=== PATIENT | female | born 1995 | race African-American/Black ===

== ENCOUNTER 2018-02-23 22:28 | Emergency (ER) | payer MEDICAID ==
[~2018-02-23] VITALS: Ht 165.1 cm; Wt 109.0 kg
[~2018-02-23 22:28] MED LIST: SEE MED REC
[2018-02-23 23:53] LABS: BASOPHILS % 0.5 % (0.0-2.0); EOSINOPHILS % 1.4 % (0.0-5.0); HEMATOCRIT. 36.9 % (36.0-48.0); HEMOGLOBIN. 12.6 g/dL (12.0-16.0); LYMPHOCYTES % 22.5 % (20.0-50.0); MONOCYTES % 5.7 % (2.0-8.0); NEUTROPHILS % 69.9 % (40.0-76.0); PLATELET 274 x1000/uL (130-400); RED BLOOD CELL COUNT 4.06 mill/uL (4.2-5.4); RED CELL DISTRIBUTION WIDTH 13.1 % (11.6-14.6)
[2018-02-23 23:56] LABS: CLARITY URINE CLEAR (CLEAR); COLOR URINE YELLOW (YELLOW); KETONES URINE TRACE (NEGATIVE); LEUKOCYTE ESTERASE URINE TRACE (NEGATIVE); NITRITE URINE NEGATIVE (NEGATIVE); OCCULT BLOOD URINE NEGATIVE (NEGATIVE); PH URINE 6.5 (4.5-8.0); PROTEIN URINE NEGATIVE (NEGATIVE)
[2018-02-23 23:58] LABS: CHLORIDE 105 mEq/L (98-107)
[2018-02-23 23:59] LABS: PROTHROMBIN TIME 10.8 sec (9.4-11.6)
[2018-02-24] MEDS ORDERED: AZITHROMYCIN 500 MG TABLET PO ONE (01:15)
[2018-02-24] MEDS ORDERED: LIDOCAINE HCL 1% 20ML VIAL (Pyxis) INJ INFIL ONE (01:15)
[2018-02-24] MEDS ORDERED: CEFTRIAXONE SODIUM 250 MG/VIAL IM ONE (01:15)
[2018-02-24] MEDS ORDERED: LIDOCAINE HCL/PF 1% 10 MG/ML 5ML VIAL IJ NR (01:30)
[2018-02-24 02:17] VITALS: BP 114/70
== END 2018-02-24 02:18 | disposition home or self-care (01) ==
LOC: ER 22:28
DX: N76.0 Acute vaginitis (principal); B96.89 Other specified bacterial agents as the cause of diseases classified elsewhere; R11.2 Nausea with vomiting, unspecified; R10.84 Generalized abdominal pain; R53.1 Weakness; J45.909 Unspecified asthma, uncomplicated; F17.200 Nicotine dependence, unspecified, uncomplicated; Z11.3 Encounter for screening for infections with a predominantly sexual mode of transmission; R79.1 Abnormal coagulation profile
CPT/HCPCS: 36415; 80053; 81003; 81025; 85025; 85610; 87210; 87491; 87591; 96372; 99284; J0696; J3490; Z7610

== ENCOUNTER 2021-07-31 23:52 | Emergency (ER) | payer MEDICAID, OTHER ==
[~2021-07-31] VITALS: Ht 167.6 cm; Wt 90.0 kg
[2021-08-01] MEDS ORDERED: SODIUM CHLORIDE 0.9% 1,000 ML IV ONE (00:45)
[2021-08-01 00:53] LABS: CLARITY URINE CLOUDY (CLEAR); COLOR URINE DARK YELLOW (YELLOW); KETONES URINE 1+ (NEGATIVE); LEUKOCYTE ESTERASE URINE 2+ (NEGATIVE); NITRITE URINE POSITIVE (NEGATIVE); OCCULT BLOOD URINE NEGATIVE (NEGATIVE); PROTEIN URINE TRACE (NEGATIVE); SPECIFIC GRAVITY URINE 1.019 (1.005-1.030)
[2021-08-01 00:54] LABS: CHLORIDE 107 mEq/L (98-107)
[2021-08-01 01:10] LABS: *BARBITURATES SCREEN URINE NEGATIVE (NEGATIVE); *BENZODIAZEPINES SCREEN URINE NEGATIVE (NEGATIVE); *COCAINE SCREEN URINE NEGATIVE (NEGATIVE); OPIATES URINE SCREEN NEGATIVE (NEGATIVE); PHENCYCLIDINE URINE SCREEN NEGATIVE (NEGATIVE)
[2021-08-01 01:11] LABS: *AMPHETAMINES SCREEN URINE NEGATIVE (NEGATIVE); METHADONE URINE SCREEN NEGATIVE (NEGATIVE)
[2021-08-01 01:13] LABS: BASOPHILS % 0.2 % (0.0-2.0); EOSINOPHILS % 0.6 % (0.0-5.0); HEMATOCRIT. 34.5 % (36.0-48.0); HEMOGLOBIN. 11.8 g/dL (12.0-16.0); LYMPHOCYTES % 19.9 % (20.0-50.0); MEAN CORPUSCULAR HEMOGLOBIN 30.6 pg (28.0-32.0); MEAN CORPUSCULAR VOLUME 89.8 fL (81.0-99.0); MEAN PLATELET VOLUME 8.5 fl (7.4-10.4); MONOCYTES % 6.5 % (2.0-8.0); NEUTROPHILS % 72.8 % (40.0-76.0); PLATELET 372 x1000/uL (130-400); RED BLOOD CELL COUNT 3.84 mill/uL (4.2-5.4); RED CELL DISTRIBUTION WIDTH 13.6 % (11.6-14.6)
[2021-08-01 01:13] LABS: CANNABINOID URINE SCREEN PRESUMTIVE POSITIVE (NEGATIVE)
[2021-08-01] MEDS ORDERED: POTASSIUM-SODIUM PHOSPHATE POWDER PACKET PO NR (02:00)
[2021-08-01] MEDS ORDERED: NITROFURANTOIN 100MG M/M CAPSULE PO NR (02:30)
[2021-08-01] MEDS ORDERED: NITR-87 MT (02:31)
[2021-08-01 03:50] VITALS: BP 132/79
== END 2021-08-01 04:21 | disposition home or self-care (01) ==
LOC: ER 23:52
DX: N39.0 Urinary tract infection, site not specified (principal); J45.909 Unspecified asthma, uncomplicated
CPT/HCPCS: 36415; 80053; 80305; 80320; 81003; 81025; 85025; 87077; 87086; 87186; 96360; 96361; 99283; J7030; G0480